=== PATIENT | female | born 1995 | race Hispanic/Latino ===

== ENCOUNTER 2019-05-26 20:39 | Emergency (ER) | payer SELFPAY ==
[2019-05-26] MEDS ORDERED: ONDANSETRON INJ 4 MG/2 ML VIAL IV ONE (22:01)
[2019-05-26] MEDS ORDERED: ACETAMINOPHEN 325 MG TAB PO ONE (22:01)
[2019-05-26] MEDS ORDERED: SODIUM CHLORIDE 0.9% 1000ML 1,000 ML IVS ONE (22:01)
--- NOTE | 2019-05-26 23:58 | ED.PDOC ---
History of Present Illness - General Chief Complaint: General Stated Complaint: weakness, dehyration, vomited 5 x today Time Seen by Provider: 05/26/19 20:54 Source: patient Exam Limitations: no limitations Additional Information: Miss Petersen is a 23-year-old female with chief complaint of nausea and vomiting for the past 2 days. Patient indicates that she was recently diagnosed had a health clinic with new and she had an ultrasound which shows that she is 6 weeks . This is patient's second and she had hyperemesis gravidarum with her first and her symptoms today are similar to her previous symptoms. patient denies fever, chills, chest pain, cough, abdominal pain, pelvic cramping, or vaginal bleeding. She indicates that she is able to keep sips of liquid down. Patient is otherwise asymptomatic and has no other complaints. - History of Present Illness Allergies/Adverse Reactions: Allergies NO KNOWN ALLERGY Allergy (Verified 03/20/13 17:32) Home Medications: Ambulatory Orders Nitrofurantoin Monohydrate Mac [Macrobid] 100 mg PO BID #20 capsule 05/27/19 Promethazine Tab [Phenergan Tablet] 25 mg PO Q8H PRN #20 tab 05/27/19 Review of Systems - Review of Systems Constitutional: States: no symptoms reported. Denies: chills, fever EENTM: States: no symptoms reported Respiratory: States: no symptoms reported. Denies: cough, orthopnea, short of breath, wheezing Cardiology: States: no symptoms reported. Denies: chest pain, palpitations Gastrointestinal/Abdominal: States: see HPI. Denies: abdominal pain Genitourinary: States: no symptoms reported. Denies: discharge, dysuria, frequency Musculoskeletal: States: no symptoms reported Skin: States: no symptoms reported Neurological: States: no symptoms reported. Denies: weakness Endocrine: States: no symptoms reported Hematologic/Lymphatic: States: no symptoms reported Past Medical History (General) - Patient Medical History Hx Seizures: No Hx Stroke: No Hx Dementia: No Hx Asthma: No Hx of COPD: No Hx Cardiac Disorders: No Hx Congestive Heart Failure: No Hx Pacemaker: No Hx Hypertension: No Hx Thyroid Disease: No Hx Diabetes: No Hx Gastroesophageal Reflux: No Hx Renal Disease: No Hx Cancer: No Hx of HIV: No Hx Hepatitis C: No Hx MRSA: No Surgical History: no surgical history - Vaccination History Hx Tetanus, Diphtheria Vaccination: Yes Hx Influenza Vaccination: No Hx Pneumococcal Vaccination: No Immunizations Up to Date: Yes - Social History Hx Tobacco Use: No Hx Chewing Tobacco Use: No Hx Alcohol Use: No Hx Substance Use: No Hx Substance Use Treatment: No Hx Depression: No Feels Threatened In Home Enviroment: No Feels Threatened In a Relationship: No Hx Physical Abuse: No Hx Emotional Abuse: No Hx Suspected Abuse: No - Activities of Daily Living Hospice Agency (if applicable):: None - Female History Patient is a Female of Child Bearing Age (10 -59 yrs old): Yes Patient : Yes Expected Date of Delivery:: 01/16/20 - Triage Comment ED Triage Comment: L1 Family Medical History - Family History Mother Family History: No Known Physical Exam - Physical Exam General Appearance: Alert, Comfortable, No apparent distress Ears, Nose, Throat: normal ENT inspection Neck: non-tender, full range of motion, supple Respiratory: chest non-tender, lungs clear, normal breath sounds, no respiratory distress Cardiovascular/Chest: normal peripheral pulses, regular rate, rhythm, no edema, no gallop Gastrointestinal/Abdominal: normal bowel sounds, non tender, soft, no organomegaly Back Exam: normal inspection, no CVA tenderness Extremity: normal range of motion Neurologic: no motor/sensory deficits Skin Exam: normal color, warm/dry Lymphatic: no adenopathy Progress - Progress Progress: 05/27/19 00:00 patient is feeling much better at this time status post IV fluids and Zofran. Her UA shows slight bacteria and this is probably exacerbating patient's hyperemesis gravidarum. We will DC with Macrobidand Phenergan and culture patient's urine, and patient to follow-up with her OB. Vital signs stable, patient NAD and looks clinically well and is safe for discharge with outpatient follow-up. Follow-up instructions, discharge instructions and return to ED precautions discussed with patient, Patient voices understanding and willingness to comply with instructions. All laboratory and radiographic results have been discussed with the patient, and all questions answered.. Patient happy with plan. Departure - Departure Clinical Impression: Hyperemesis gravidarum Time of Disposition: 00:01 Disposition: Discharge to Home or Self Care Condition: Good Departure Forms: ED Discharge - Pt. Copy, Patient Portal Self Enrollment Instructions: Hyperemesis Gravidarum, Nausea and Vomiting of (DC) Diet: resume usual diet Referrals: NYDIA RASMUSSEN [Primary Care Provider] - 1-5 Days Prescriptions: Nitrofurantoin Monohydrate Mac [Macrobid] 100 mg PO BID #20 capsule Promethazine Tab [Phenergan Tablet] 25 mg PO Q8H PRN #20 tab PRN Reason: Nausea/Vomiting Home Medications: Ambulatory Orders Nitrofurantoin Monohydrate Mac [Macrobid] 100 mg PO BID #20 capsule 05/27/19 Promethazine Tab [Phenergan Tablet] 25 mg PO Q8H PRN #20 tab 05/27/19
[2019-05-27 00:15] VITALS: BP 97/64; TEMP 98.7; O2SAT 99
== END 2019-05-27 00:10 | disposition home or self-care (01) ==
LOC: ER 20:39
DX: O21.0 Mild hyperemesis gravidarum (principal); Z3A.01 Less than 8 weeks gestation of pregnancy
CPT/HCPCS: 80048; 81001; 84702; 85025; 87086; 87502; J2405; J7030